=== PATIENT | female | born 1970 | race Caucasian/White ===

== ENCOUNTER 2021-10-16 13:23 | Outpatient (CLI) | payer MEDICAID, OTHER ==
--- NOTE | 2021-10-16 13:46 | XRAY Report ---
PROCEDURE: Chest 2 View X-Ray INDICATIONS: ACUTE COVID TECHNIQUE: 2 view(s) of the chest. COMPARISON: March 11, 2015 FINDINGS: SUPPORT DEVICES: None. LUNGS/PLEURA: No focal consolidation, pleural effusion or space-occupying pneumothorax. MEDIASTINUM: The cardiomediastinal silhouette is within normal limits. BONES/SOFT TISSUES: No acute abnormality. IMPRESSION: 1.No acute cardiopulmonary abnormality. Reviewed by: Ky Keith MD on 10/16/2021 1:44 PM [facility] Approved by: Ky Keith MD on 10/16/2021 1:44 PM [facility] Station ID: [id number]
== END 2021-10-16 23:59 | disposition home or self-care (01) ==
LOC: DI.N 13:23
PROVIDERS: ATTEND Nurse Practitioner
DX: U07.1 COVID-19 (principal)